=== PATIENT | female | born 1990 | race Hispanic/Latino ===

== ENCOUNTER 2022-11-30 10:47 | Emergency (ER) | payer MEDICAID ==
[~2022-11-30] VITALS: Ht 160 cm; Wt 88.0 kg
[2022-11-30 11:19] VITALS: BP 135/48; PULSE 18; RESP 18; O2SAT 98
[2022-11-30 11:57] LABS: SARS-CoV-2, RNA, NAAT NEGATIVE SARS CoV-2 (NEGATIVE)
[2022-11-30 11:58] LABS: RAPID GROUP A STREP negative (NEGATIVE)
[2022-11-30 12:08] LABS: INFLUENZA TYPE A Negative For Type A (NEGATIVE); INFLUENZA TYPE B Negative For Type B (NEGATIVE)
[2022-11-30] MEDS ORDERED: SODI50DR NS (14:11)
== END 2022-11-30 14:23 | disposition home or self-care (01) ==
LOC: EDH 10:47
DX: O99.512 Diseases of the respiratory system complicating pregnancy, second trimester (principal); J06.9 Acute upper respiratory infection, unspecified; J45.909 Unspecified asthma, uncomplicated; Z3A.23 23 weeks gestation of pregnancy; Z20.822 Contact with and (suspected) exposure to COVID-19
CPT/HCPCS: 99284; 76805; 87635; 87880; 87804 ×2; C9803